=== PATIENT | female | born 1995 | race Caucasian/White ===

== ENCOUNTER 2017-08-07 22:10 | Emergency (ER) | payer OTHER ==
[2017-08-07 22:19] VITALS: BP 140/94; RESP 16; TEMP 98.6
--- NOTE | 2017-08-07 22:28 | CPEKG ---
Heart Rate: 61 RR Interval: 984 P-R Interval: 132 QRSD Interval: 94 QT Interval: 400 QTC Interval: 403 P Briscoe: 0 QRS Briscoe: 50 T Wave Briscoe: 36 EKG Severity - NORMAL ECG - EKG Impression: SINUS RHYTHM Electronically Signed By: Ori Wade 08-Aug-2017 06:35:52
[2017-08-07] MEDS ORDERED: IBUPROFEN 200 MG TAB PO ONE (22:40)
--- NOTE | 2017-08-07 22:43 | EDPHY ---
H & P Stated Complaint: CP Time Seen by Provider: 08/07/17 22:20 HPI/ROS: Chief Complaint: Chest pain HPI: Healthy 21-year-old female with no past medical history presenting with intermittent chest discomfort for the last 4 days. She 1st noticed when she was walking down heal after hiking several days ago. Is described as a dull pain which moves around her chest. At worst is a 4/10. Right now is a 2/10. She does have periods where she is completely pain-free. She has noticed a little bit worse when she lays down. Has not had any fevers or chills. Is not worsened by exerting herself. Since it began she did go in hike again but did not have any associated chest pain while she was making the sent. No cough. No fevers or chills. Pain is not pleuritic. There are no aggravating or alleviating factors. She has not have a history of similar pain in the past. She does not smoke. She has no family history for coronary disease or blood clotting disorders. She does take oral contraceptives. She has had no leg pain or swelling. No recent. Of immobility. ROS: 10 point Review of Systems is negative except as noted in the HPI. PMH: None Social History: No smoking, occasional alcohol, no recreational drug use Family History: No family history of coronary artery disease or blood clotting disorders. Physical Exam: Gen: Awake, Alert, No Distress HEENT: Nose: no rhinorrhea Eyes: PERRLA, EOMI Mouth: Moist mucosa Neck: Supple, no JVD Chest: nontender, lungs clear to auscultation Heart: S1, S2 normal, no murmur Abd: Soft, non-tender, no guarding Back: no CVA tenderness, no midline tenderness Ext: no edema, non-tender Skin: no rash Neuro: CN II-XII intact, Sensation grossly intact, Strength 5/5 in bilateral upper and lower extremities - Personal History LMP (Females 10-55): 15-21 Days Ago Current Tetanus/Diphtheria Vaccine: Unsure Current Tetanus Diphtheria and Acellular Pertussis (TDAP): Unsure - Medical/Surgical History Hx Asthma: No Hx Chronic Respiratory Disease: No Hx Diabetes: No Hx Cardiac Disease: No Hx Renal Disease: No Hx Cirrhosis: No Hx Alcoholism: No Hx HIV/AIDS: No Hx Splenectomy or Spleen Trauma: No Other PMH: Kidney infections. - Social History Smoking Status: Never smoked Constitutional: Initial Vital Signs Temperature (C) 37.0 C 08/07/17 22:15 Heart Rate 61 08/07/17 22:15 Respiratory Rate 16 08/07/17 22:15 Blood Pressure 140/94 H 08/07/17 22:15 O2 Sat (%) 98 08/07/17 22:15 O2 Delivery Mode Room Air Allergies/Adverse Reactions: No Known Allergies Allergy (Unverified 08/07/17 22:19) Home Medications: Medication Instructions Recorded Lo Carmitaestrin Fe 1-10 Tablet 08/07/17 Medical Decision Making - Diagnostics EKG Interpretation: ECG time 10:27 p.m., sinus rhythm with a rate of 61, normal axis, normal intervals, no acute ST or T-wave changes. Impression: Normal ECG. ED Course/Re-evaluation: This is a healthy 21-year-old female presenting with mild intermittent chest discomfort for the last several days. She has no risk factors for coronary disease. She has not have any exertional chest pain. She has a normal ECG. She has no risk factors for PE. There is no pleuritic pain. She is not tachycardic. She is not hypoxemic. I do not feel that any blood work is indicated at this time. Will obtain a chest x-ray and give her some ibuprofen. Patient's chest x-ray is unremarkable. She has not have any historical or exam findings suggestive of acute coronary syndrome or acute pulmonary process. She has a very healthy young woman with no risk factors. Normal ECG. Story is not convincing for cardiac or pulmonary cause. She is not tachycardic. She is not tachypneic. She is not hypoxemic. Will discharge with follow up at [facility], [facility], return for any worsening. - Data Points Medications Given: Discontinued Medications Ibuprofen (Motrin) 400 mg PO EDNOW ONE Stop: 08/07/17 22:41 Last Admin: 08/07/17 22:52 Dose: 400 mg Departure - Departure Disposition: Home, Routine, Self-Care Clinical Impression: Atypical chest pain Condition: Good Instructions: Chest Pain (ED) Additional Instructions: Follow up with your primary physician at [facility], [facility]. Return to the emergency depart for worsening chest pain, worsening shortness of breath, fevers, chills, cough, or any other concerns. Referrals: [facility] Gatic[facility],. [Clinic] - As per Instructions
[2017-08-07 22:57] VITALS: PULSE 71; O2SAT 97
== END 2017-08-07 23:16 | disposition home or self-care (01) ==
DX: R07.89 Other chest pain (principal)